=== PATIENT | female | born 1990 | race American Indian/Alaskan Native ===

== ENCOUNTER 2022-07-27 11:49 | Outpatient (CLI) | payer OTHER ==
[2022-07-27 13:15] VITALS: BP 126/85
== END 2022-07-27 16:21 | disposition home or self-care (01) ==
LOC: TRG 11:49 → APU 12:12 → TRG 16:21
PROVIDERS: ATTEND Obstetrics & Gynecology
DX: Z12.31 Encounter for screening mammogram for malignant neoplasm of breast (principal)
CPT/HCPCS: 59025

== ENCOUNTER 2022-07-30 18:28 | Inpatient (IN) | payer OTHER ==
[2022-07-30] MEDS ORDERED: LACTATED RINGERS 1,000 ML ONE (19:31)
[2022-07-30] MEDS ORDERED: OXYTOCIN DRIP 30,000 MILLIUNITS/500 ML BAG IV ONE (19:31)
[2022-07-30] MEDS ORDERED: LOPERAMIDE 2 MG CAP PO PRN (19:47)
[2022-07-30] MEDS ORDERED: LIDOCAINE (2%) 20 MG/1 ML VIAL 20 ML MDV INFILTRATI ONE (19:47)
[2022-07-30] MEDS ORDERED: MINERAL OIL 30 ML ORAL LIQD PO PRN (19:47)
[2022-07-30] MEDS ORDERED: TERBUTALINE 1 MG/1 ML INJ SUB-Q PRN (19:47)
[2022-07-30] MEDS ORDERED: OXYTOCIN 10 UNIT/1 ML INJ IM PRN (19:47)
[2022-07-30] MEDS ORDERED: miSOPROStol 200 MCG TAB PR PRN (19:47)
[2022-07-30] MEDS ORDERED: METHYLERGONOVINE MALEATE 0.2 MG/ML VIAL IM PRN (19:47)
[2022-07-30] MEDS ORDERED: CARBOPROST TROMETHAMINE 250 MCG/1 ML INJ IM PRN (19:47)
[2022-07-30] MEDS ORDERED: ePHEDrine SULFATE 50 MG/1 ML INJ IV PRN (19:47)
[2022-07-30] MEDS ORDERED: ACETAMINOPHEN 325 MG TAB PO PRN ×2 (19:48→20:03)
[2022-07-30] MEDS ORDERED: ONDANSETRON 4 MG/2 ML INJ IV PRN ×2 (19:48→20:02)
[2022-07-30] MEDS ORDERED: BUTORPHANOL 2 MG/1 ML INJ IV PRN (19:48)
[2022-07-30] MEDS ORDERED: fentaNYL 100 MCG/2 ML INJ IV PRN (19:48)
[2022-07-30] MEDS ORDERED: OXYTOCIN DRIP 30 UNITS/500 ML BAG IV SCH ×2 (20:00)
[2022-07-30] MEDS ORDERED: LACTATED RINGERS 1,000 ML IV SCH (20:00)
--- NOTE | 2022-07-30 20:01 | History and Physical Report ---
History of Present Illness Date of examination: 07/30/22 Date of admission: 07/30/2022 Chief complaint: Contractions History of present illness: 31-year-old -0-0-2 at 39+2 weeks who presents in active labor with advanced cervical dilatation of 8 cm. The patient reports spontaneous rupture membranes. Past History Past Medical History: other (Graves' disease; hearing loss) Past Surgical History: no surgical history Social history: single - Obstetrical History Expected Date of Delivery: 08/04/22 Actual Gestation: 39 Week(s) 2 Day(s) : 3 Para: 2 Hx # Term Pregnancies: 2 Number of Pregnancies: 0 Spontaneous Abortions: 0 Induced : 0 Number of Living Children: 2 Medications and Allergies Allergies Allergy/AdvReac Type Severity Reaction Status Date / Time No Known Allergies Allergy Verified 07/27/22 13:09 Active Meds: Active Medications Acetaminophen (Acetaminophen 325 Mg Tab) 650 mg PO Q4H PRN PRN Reason: Pain, Mild (1-3) Butorphanol Tartrate (Butorphanol 2 Mg/1 Ml Inj) 1 mg IV Q2H PRN PRN Reason: Pain, Moderate(4-6) LABOR PAIN Carboprost Tromethamine (Carboprost Tromethamine 250 Mcg/1 Ml Inj) 250 mcg IM ONCE PRN PRN Reason: Uterine Bleeding Ephedrine Sulfate (Ephedrine Sulfate 50 Mg/1 Ml Inj) 10 mg IV Q2M PRN PRN Reason: Hypotension Fentanyl (Fentanyl 100 Mcg/2 Ml Inj) 100 mcg IV Q2H PRN PRN Reason: Pain,Severe (7-10) LABOR PAIN Oxytocin/Sodium Chloride (Pitocin/Ns 30 Unit/500ml) 30 units in 500 mls @ 2 mls/hr IV TITR JOANNE; Protocol Lactated Ringer's (Lactated Ringers) 1,000 mls @ 125 mls/hr IV DIRECT JOANNE Oxytocin/Sodium Chloride (Pitocin/Ns 30 Unit/500ml) 30 units in 500 mls @ 40 mls/hr IV TITR JOANNE; Protocol Lidocaine (Lidocaine (2%) 20 Mg/1 Ml Vial 20 Ml Mdv) 20 ml INFILTRATI ONCE ONE Stop: 07/30/22 19:48 Loperamide HCl (Loperamide 2 Mg Cap) 2 mg PO ONCE PRN PRN Reason: give with Hemabate Methylergonovine Maleate (Methylergonovine Maleate 0.2 Mg/Ml Vial) 0.2 mg IM ONCE PRN PRN Reason: Uterine Bleeding Mineral Oil (Mineral Oil 30 Ml Oral Liqd) 30 ml PO QHS PRN PRN Reason: Constipation Misoprostol (Misoprostol 200 Mcg Tab) 800 mcg NM ONCE PRN PRN Reason: Uterine Bleeding Ondansetron HCl (Ondansetron 4 Mg/2 Ml Inj) 4 mg IV Q8H PRN PRN Reason: Nausea And Vomiting Oxytocin (Oxytocin 10 Unit/1 Ml Inj) 10 unit IM ONCE PRN PRN Reason: Uterine Bleeding Terbutaline Sulfate (Terbutaline 1 Mg/1 Ml Inj) 0.25 mg SUB-Q ONCE PRN PRN Reason: Hyperstimulation/Hypertonicity Review of Systems All systems: negative Genitourinary: leakage of fluid, pelvic pain, contractions - Vital Signs Vital signs: Vital Signs Pulse BP 94 H 136/84 07/30/22 19:34 07/30/22 19:34 Temp Pulse Resp BP Pulse Ox 88 138/61 97 07/30/22 19:56 07/30/22 19:56 07/30/22 19:55 - Physical Exam Breasts: Positive: deferred Cardiovascular: Regular rate Lungs: Positive: Clear to auscultation Abdomen: Positive: normal appearance Results All other labs normal. Assessment and Plan - Patient Problems (1) Active labor at term Current Visit: Yes Status: Acute Plan to address problem: Admit to labor and delivery
[2022-07-30] MEDS ORDERED: diphenhydrAMINE 25 MG CAP PO PRN (20:02)
[2022-07-30] MEDS ORDERED: PROMETHAZINE 25 MG RECT SUPP PR PRN (20:02)
[2022-07-30] MEDS ORDERED: MAGNESIUM HYDROXIDE (MOM) ORAL LIQD UDC PO PRN (20:02)
[2022-07-30] MEDS ORDERED: LANOLIN/ZINC/DIMETHICONE (LANSINOH) 7 GM TP PRN (20:02)
[2022-07-30] MEDS ORDERED: PROMETHAZINE 25 MG TAB PO PRN (20:02)
[2022-07-30] MEDS ORDERED: WITCH HAZEL/ GLYCERIN PAD TP PRN (20:02)
[2022-07-30] MEDS ORDERED: HYDROcodone/ACETAMINOPHEN 5-325 MG TAB PO PRN (20:03)
--- NOTE | 2022-07-30 20:06 | Procedure Note ---
OB Delivery Note - Delivery Date of Delivery: 07/30/22 Surgeon: ELVIE MCEKON Estimated blood loss: <100cc - Vaginal Delivery presentation: vertex Delivery position: OA Intrapartum events: precipitous labor- <3hr Delivery monitor: external FHT, external uterine Route of delivery: Delivery placenta: spontaneous Delivery cord: 3 umbilical vessels Episiotomy: none Delivery laceration: none Anesthesia: none Delivery comments: The patient presented in active labor. She pushed to deliver a liveborn male with Apgars of 9 and 9 weight 8 pounds 1 ounce. After delivery of the head the shoulders delivered without difficulty. The was bulb suction. The cord was clamped and cut and the was placed on the patient's abdomen. The placenta delivered spontaneously intact with a three-vessel cord. No lacerations were noted. Estimated blood loss less than 100 mL. - Infant A at 1 minute: 9 at 5 minutes: 9 Infant Gender: Male (Weight 8 pounds 1 ounce)
[2022-07-30 20:20] LABS: Hematocrit 31.6 % (30.3-42.9); Hemoglobin 10.6 gm/dl (10.1-14.3); Mean Corpuscular HGB Conc 33 % (30-34); Mean Corpuscular Volume 95 fl (79-97); Platelet Count 187 K/mm3 (140-440); Red Blood Count 3.31 M/mm3 (3.65-5.03); Red Cell Distribution Width 14.4 % (13.2-15.2)
[2022-07-30] MEDS: IBUPROFEN 800 MG TAB PO SCH (20:56)
[2022-07-31] MEDS: IBUPROFEN 800 MG TAB PO SCH ×2 (08:13→17:36)
[2022-07-31 09:14] LABS: Hematocrit 31.9 % (30.3-42.9); Hemoglobin 10.6 gm/dl (10.1-14.3)
--- NOTE | 2022-07-31 10:50 | Progress Note ---
Assessment and Plan - Patient Problems (1) Active labor at term Current Visit: Yes Status: Acute Plan to address problem: Patient doing well Discharge home with the Subjective - Subjective Date of service: 07/31/22 Interval history: Patient is currently without complaints. Her pain is well controlled. Patient reports: appetite normal, voiding normally, pain well controlled [place]: doing well Objective - Vital Signs Latest vital signs: Vital Signs Temp Pulse Resp BP BP Pulse Ox Pulse Ox 07/31/22 07:52 98 07/31/22 07:39 98.5 F 78 20 127/78 97 07/31/22 04:12 98.7 F 85 20 114/81 98 07/30/22 22:50 99.1 F 72 18 145/72 98 98 07/30/22 21:09 84 138/76 07/30/22 20:40 84 100 07/30/22 20:35 83 142/79 98 07/30/22 20:30 91 H 99 07/30/22 20:25 101 H 98 07/30/22 20:24 98 H 90 07/30/22 20:20 104 H 135/62 97 07/30/22 20:15 92 H 96 07/30/22 20:10 99 H 97 07/30/22 20:09 97 H 85 07/30/22 20:05 89 130/83 98 07/30/22 20:00 95 H 99 07/30/22 19:56 88 138/61 07/30/22 19:55 102 H 97 07/30/22 19:52 108 H 85 07/30/22 19:50 99 H 99 07/30/22 19:45 98 H 99 07/30/22 19:40 85 99 07/30/22 19:35 95 H 98 07/30/22 19:34 94 H 136/84 Intake and Output 07/30/22 07/31/22 07/31/22 22:59 06:59 14:59 Intake Total 840 Output Total 2200 Balance -1360 Intake: Oral 360 Intake, Free Water 480 Output: Urine 2200 Void 2200 Other: Total, Intake Amount 360 Total, Output Amount 600 # Voids Void 1 Weight 84.368 kg Estimated Blood Loss 90 - Exam Uterus: Present: normal, firm - Labs Labs: Abnormal lab results 07/30/22 Range/Units 19:15 RBC 3.31 L (3.65-5.03) M/mm3
--- NOTE | 2022-07-31 10:57 | Discharge Summary ---
Providers - Providers Date of Admission: 07/30/22 19:47 Date of discharge: 07/31/22 Attending physician: ELVIE MCKEON Primary care physician: ELVIE MCKEON Hospitalization Reason for admission: active labor Delivery: Discharge diagnosis: IUP at term delivered Hospital course: The patient was admitted in active labor with advanced cervical dilatation of 8 cm. She had a precipitous delivery of a liveborn . Her course was uneventful. Condition at discharge: Good Disposition: 01 HOME / SELF CARE / HOMELESS - Discharge Diagnoses (1) Active labor at term Status: Acute Plan - Discharge Medications Prescriptions: Ibuprofen [Motrin] 800 mg PO Q8HR PRN #30 tablet PRN Reason: Pain , Severe (7-10) HYDROcodone/APAP 5-325 [[place] 5/325] 1 each PO Q6HR PRN #15 tablet PRN Reason: Pain - Provider Discharge Summary Activity: no sex for 6 weeks, no heavy lifting 4 weeks, no strenuous exercise Diet: routine Instructions: routine Additional instructions: [] Smoking cessation referral if applicable(refer to patient education folder for contact #) [] Refer to [facility] Booklet Call your doctor immediately for: * Fever > 100.5 * Heavy vaginal bleeding ( >1 pad per hour) * Severe persistent headache * Shortness of breath * Reddened, hot, painful area to leg or breast * Schedule visit in 4 weeks - Follow up plan
[2022-07-31 16:37] VITALS: BP 117/83
== END 2022-07-31 23:50 | disposition home or self-care (01) | DRG 775 ==
LOC: LD 18:28 → TRG 18:28 → LD 19:47 → TRG 19:47 → OB 21:45
PROVIDERS: ADMIT Obstetrics & Gynecology; ATTEND Obstetrics & Gynecology
PROC: 10E0XZZ Delivery of Products of Conception, External Approach (ICD-10-PCS; principal; 2022-07-30)
DX: O62.3 Precipitate labor (principal); Z37.0 Single live birth; Z20.822 Contact with and (suspected) exposure to COVID-19; Z3A.39 39 weeks gestation of pregnancy
CPT/HCPCS: 36415; 85014; 85018; 85027; 86592; 86762; 86850; 86900; 86901; G0378; J2590; J7120; U0003